=== PATIENT | male | born 1965 | race Two or more races ===

== ENCOUNTER → 2025-03-05 | Emergency (ER) | payer OTHER ==
[~2025-03-05] VITALS: Ht 185.4 cm; Wt 86.2 kg
[~2025-03-05] MED LIST: CRESTOR40 MG; GUAIFENESIN 200 MG/10 ML BLIST.PACK PO ONE; GUAIFENESIN 200 MG/10 ML BLIST.PACK PO STA; NIFEDIPINE20 MG; ONDANSETRON 4 MG TAB.RAPDIS PO ONE; ONDANSETRON 4 MG TAB.RAPDIS PO STA
[2025-03-05 07:14] LABS: BASO % 0.7 % (0.1-1.2); EOS # 0.01 (0.04-0.54); EOS % 0.1 % (0.7-7.0); LYMPH # 0.36 (1.18-3.74); LYMPH % 4.9 % (19.3-53.1); MEAN PLATELET VOLUME 10.90 fl (9.4-12.4); MONO # 1.39 (0.24-0.82); NEUT # 5.53 (1.56-6.13); NEUT % 75.1 % (34.0-71.1); RED CELL DISTRIBUTION WIDTH 12.6 % (11.6-14.4)
[2025-03-05 07:29] LABS: MONO % 18.9 % (4.7-12.5)
[2025-03-05 09:10] LABS: COVID-19 AG NEGATIVE (NEGATIVE)
== END | disposition home or self-care (01) ==
LOC: ER 04:54
PROVIDERS: General Practice
DX: J10.1 Influenza due to other identified influenza virus with other respiratory manifestations (principal); Z20.822 Contact with and (suspected) exposure to COVID-19; I10 Essential (primary) hypertension; Z88.8 Allergy status to other drugs, medicaments and biological substances